=== PATIENT | male | born 1945 | race Caucasian/White ===

== ENCOUNTER 2019-12-06 10:02 | Emergency (ER) | payer MEDICARE ==
[~2019-12-06] VITALS: Ht 182.9 cm; Wt 97.0 kg
[2019-12-06] MEDS ORDERED: KEFLEX500 M1 PO (11:07)
[2019-12-06] MEDS ORDERED: NAPROSYN250 MG PO (11:07)
[2019-12-06 11:14] VITALS: BP 152/55
== END 2019-12-06 11:29 | disposition home or self-care (01) ==
LOC: ED 10:02
DX: M70.21 Olecranon bursitis, right elbow (principal)

== ENCOUNTER 2021-08-09 08:58 | Day surgery (SDC) | payer MEDICARE ==
[~2021-08-09] VITALS: Ht 182.9 cm; Wt 90.7 kg
[~2021-08-09 08:58] MED LIST: DOCUSATE CAL240 MG PO; KEFLEX500 M1 PO; NAPROSYN250 MG PO; RETACRIT2000 UNIT/ SC
[2021-08-09 11:24] VITALS: BP 117/52
== END 2021-08-09 11:20 | disposition home or self-care (01) ==
LOC: ENDO 08:58 → ORM 11:30 → ENDO 11:30 → ORM 12:30
PROVIDERS: ATTEND Surgery
PROC: 0DJD8ZZ Inspection of Lower Intestinal Tract, Via Natural or Artificial Opening Endoscopic (ICD-10-PCS; principal; 2021-08-09)
DX: Z12.11 Encounter for screening for malignant neoplasm of colon (principal); K57.30 Diverticulosis of large intestine without perforation or abscess without bleeding; K64.8 Other hemorrhoids; Z86.010 Personal history of colon polyps

== ENCOUNTER 2022-08-06 14:16 | Emergency (ER) | payer MEDICARE, OTHER ==
[2022-08-06] VITALS (10 sets, daily range): BP systolic 120–145; BP diastolic 41–69
[~2022-08-06] VITALS: Ht 182.9 cm; Wt 88.4 kg
[2022-08-06 15:52] LABS: BASO% 2.3 % (0-3); EOS% 1.4 % (0-8); HEMATOCRIT 29.5 % (39.0-50.0); HEMOGLOBIN 9.2 g/dl (14.0-18.0); IMMATURE GRANULOCYTES 0.5 % (0.0-5.0); LYMPH% 34.9 % (15-41); MEAN CELL VOLUME 108.1 fL CALC (80.0-100.0); MEAN CORPUSCULAR HGB 33.7 pG CALC (26.0-32.0); MEAN CORPUSCULAR HGB CONC 31.2 g/dL CAL (32.0-36.0); MONO% 11.3 % (2-13); NEUT# 2.21 thou/uL (1.82-7.42); NEUT% 49.6 % (42-76); RED BLOOD COUNT 2.73 mill/uL (4.70-6.10); RED CELL DISTRI WIDTH 23.6 % (11.5-15.5)
[2022-08-06 15:53] LABS: ALKALINE PHOSPHATASE 75 u/l (38-126); ANION GAP 12 (6-22 (CALC)); BILIRUBIN, TOTAL 1.4 mg/dL (0.2-1.3); BUN 27 mg/dL (8-23); BUN/CREATININE RATIO 20 (12-20 (CALC)); CARBON DIOXIDE 27 mmol/l (22-30); CHLORIDE 104 mmol/l (95-108); CREATININE 1.3 mg/dL (0.7-1.3); GFR FOR AFR.AMER. > 60 ML/MIN (>=60 (CALC)); GFR OTHER RACES 54 ML/MIN (>=60 (CALC)); POTASSIUM 4.3 mmol/l (3.5-5.1); SGOT/AST 27 u/l (19-48); SODIUM 139 mmol/l (137-146); TOTAL PROTEIN 8.2 g/dL (6.3-8.2)
[2022-08-06 15:55] LABS: INTERNATIONAL NORMALIZED RATIO 1.1 RATIO (0.7-1.3); PROTHROMBIN TIME 10.6 SECONDS (9.0-12.5)
[2022-08-06] MEDS ORDERED: MEDDOSEPAK PO ×2 (18:19→18:34)
== END 2022-08-06 18:57 | disposition home or self-care (01) ==
LOC: ED 14:16
PROVIDERS: Emergency Medicine
DX: M17.11 Unilateral primary osteoarthritis, right knee (principal)

== ENCOUNTER 2022-12-02 14:34 | Inpatient (IN) | payer MEDICARE, OTHER ==
[2022-12-02] VITALS (15 sets, daily range): BP systolic 86–141; BP diastolic 23–54
[~2022-12-02] VITALS: Ht 182.9 cm; Wt 84.0 kg
[~2022-12-02 14:34] MED LIST changes: +MEDDOSEPAK PO
--- NOTE | 2022-12-02 15:00 | NUR ---
EKG PERFORMED IN TRIAGE. PATIENT TAKEN TO ROOM 1 AFTER ARRIVAL.
[2022-12-02 15:22] LABS: BASO% 1.8 % (0-3); EOS% 3.6 % (0-8); HEMATOCRIT 24.9 % (39.0-50.0); HEMOGLOBIN 7.8 g/dl (14.0-18.0); IMMATURE GRANULOCYTES 1.4 % (0.0-5.0); LYMPH% 19.2 % (15-41); MEAN CELL VOLUME 101.6 fL CALC (80.0-100.0); MEAN CORPUSCULAR HGB 31.8 pG CALC (26.0-32.0); MEAN CORPUSCULAR HGB CONC 31.3 g/dL CAL (32.0-36.0); MONO% 10.4 % (2-13); NEUT# 4.58 thou/uL (1.82-7.42); NEUT% 63.6 % (42-76); RED BLOOD COUNT 2.45 mill/uL (4.70-6.10); RED CELL DISTRI WIDTH 24.3 % (11.5-15.5)
[2022-12-02 15:38] LABS: ALKALINE PHOSPHATASE 106 u/l (38-126); ANION GAP 15 (6-22 (CALC)); BILIRUBIN, TOTAL 1.1 mg/dL (0.2-1.3); BUN 31 mg/dL (8-23); BUN/CREATININE RATIO 17 (12-20 (CALC)); CARBON DIOXIDE 23 mmol/l (22-30); CHLORIDE 105 mmol/l (95-108); CREATININE 1.8 mg/dL (0.7-1.3); GFR FOR AFR.AMER. 45 ML/MIN (>=60 (CALC)); GFR OTHER RACES 37 ML/MIN (>=60 (CALC)); LIPASE 113 u/l (23-300); POTASSIUM 4.7 mmol/l (3.5-5.1); SGOT/AST 35 u/l (19-48); SODIUM 138 mmol/l (137-146); TOTAL PROTEIN 8.2 g/dL (6.3-8.2)
--- NOTE | 2022-12-02 15:43 | NUR ---
PROVIIDER AT BEDSIDE
[2022-12-02 15:45] LABS: ALBUMIN 3.9 g/dL (3.2-5.0)
--- NOTE | 2022-12-02 17:03 | NUR ---
PT TAKEN TO CT SCAN
--- NOTE | 2022-12-02 18:32 | NUR ---
CALLED AND GAVE PT REPORT TO ANTONIA IN [facility]
--- NOTE | 2022-12-02 18:44 | NUR ---
PT ARRIVED ON UNIT TRANSPORTED VIA STRETCHER AND TRANSFERRED TO BED. REPORT RECEIVED FROM ED NURSE H[place]. PT ALERT AND ORIENTED X 3, DENIES DISCOMFORT, SETTLED IN BED, ORIENTED TO ROOM AND CALL ALAS, C/O BEING HUNGRY AND OFFERED FOOD. INFORMED/EDUCATED ON FALL PRECAUTIONS AND STATED UNDERSTANDING. HR RN WILL CONTINUE CARE. AZYTHROMYCIN HUNG AND INFUSING. HS RN WILL CONTINUE CARE.
--- NOTE | 2022-12-02 20:13 | NUR ---
PATIENT SITTING UP IN BED WATCHING TV. ALERT AND ORIENTED X3. ASSESSMENT COMPLETE. PATIENT VERBALIZES SHARP CHEST PAIN UPON DEEP INHALATION OTHERWISE NO PAIN NOTED. NO DISTRESS NOTED AT THIS TIME. CALL LIGHT WITHIN REACH. INSTRUCTED TO CALL FOR ASSISTANCE WHEN NEEDED.
[2022-12-02 21:34] LABS: URINE BILIRUBIN - DIPSTICK NEGATIVE (NEGATIVE); URINE BLOOD DIPSTICK NEGATIVE (NEGATIVE); URINE COLOR YELLOW; URINE GLUCOSE - DIPSTICK NEGATIVE (NEGATIVE); URINE KETONE NEGATIVE (NEGATIVE); URINE LEUK ESTERASE NEGATIVE (NEGATIVE); URINE PH 5.5 (4.5-8.0); URINE PROTEIN - DIPSTICK TRACE mg/dL (NEG-TRACE); URINE UROBILINOGEN - DIPSTICK 0.2 E.U./dL (0.2)
[2022-12-02 21:35] LABS: URINE NITRITE - DIPSTICK NEGATIVE (Negative)
--- NOTE | 2022-12-02 22:00 | NUR ---
BASELINE VITALS TAKEN AND NS BEGAN AT 50ML/HR PRIOR TO RECEIVING PRBC'S FOR TRANFUSION.
--- NOTE | 2022-12-02 22:22 | NUR ---
VITALS RECHECKED PRIOR TO SPIKING RED BLOOD CELLS. BP AND SATURATION LOW, PATIENT PLACED ON 2L/NC FOR STATURATION HIGH 70'S, LOW 80'S. SATURATION PRICILA TO 90%
--- NOTE | 2022-12-02 22:33 | NUR ---
PRBC TRANSFUSION BEGAN.
--- NOTE | 2022-12-02 22:48 | NUR ---
INITIAL 15 MINUTES OF BEDSIDE TRANSFUSION MONITORING COMPLETE. PATIENT TOLERATING WELL. NO S/S OF TRANFUSION REACTION NOTED. RATE INCREASED FROM 75ML TO 125ML.
--- NOTE | 2022-12-02 23:00 | NUR ---
TOLERATING TRANSFUSION WELL.
[2022-12-03] VITALS (17 sets, daily range): BP systolic 103–138; BP diastolic 39–59
--- NOTE | 2022-12-03 02:05 | NUR ---
PRBC TRANSFUSION COMPLETE. PATIENT TOLERATED WELL, VSS. NO DISTRESS NOTED.
[2022-12-03 06:08] LABS: HEMATOCRIT 26.1 % (39.0-50.0); HEMOGLOBIN 8.2 g/dl (14.0-18.0); MEAN CELL VOLUME 101.2 fL CALC (80.0-100.0); MEAN CORPUSCULAR HGB 31.8 pG CALC (26.0-32.0); MEAN CORPUSCULAR HGB CONC 31.4 g/dL CAL (32.0-36.0); RED BLOOD COUNT 2.58 mill/uL (4.70-6.10); RED CELL DISTRI WIDTH 23.5 % (11.5-15.5)
[2022-12-03 06:13] LABS: CREATININE 1.7 mg/dL (0.7-1.3); POTASSIUM 4.6 mmol/l (3.5-5.1)
[2022-12-03 06:15] LABS: CHOLESTEROL HDL RATIO 2.3 (<4.4 (CALC)); MAGNESIUM 1.9 mg/dL (1.6-2.3)
--- NOTE | 2022-12-03 07:19 | NUR ---
RECEIVE REPORT FROM OMID SHAVER.
--- NOTE | 2022-12-03 08:00 | NUR ---
Alert and oriented patient x3.Does not refer pain or discomfort at the time of writing this note. TELE monitor ON. Nasal cannula 2L. PT is Educates and guides on medications, pain management and nausea and nursing plan for today. Patient refers to understand. Safety and fall precautions in place. Call light within in reach.
--- NOTE | 2022-12-03 12:14 | NUR ---
Stable patient at the time of this note. Patient receiving blood transfusion.
--- NOTE | 2022-12-03 16:00 | NUR ---
PATIENT STABLE RESTING IN BED. SAFETY AND FALL PRECAUTIONS IN PLACE. CALL LIGHT WITHIN IN REACH.
--- NOTE | 2022-12-03 20:01 | NUR ---
BEDSIDE REPORT RECEIVED FORM OFF GOING NURSE. PATIENT AWAKE AND ABLE TO ANSWER QUESTIONS APPROPRIATELY. DENIES PAIN OR DISCOMFORT AT THIS TIME. RESPIRATIONS EVEN AND UNLABORED ON OXYGEN AT 2 LPM VIA NASAL CANNULA. PATIENT IS NOTED TO BE HARD OF HEARING BUT ABLE TO HEAR IN A QUIET SETTING. CALL LIGHT WITHIN REACH.
[2022-12-04] VITALS (8 sets, daily range): BP systolic 92–111; BP diastolic 38–58
--- NOTE | 2022-12-04 02:11 | NUR ---
PATENT ASLEEP IN BED. RESPIRATIONS EVEN AND UNLABORED ON OXYGEN AT 2 LPM VIA NASAL CANNULA. AIRBORNE PRECAUTIONS MAINTAINED. CALL LIGHT WITHIN REACH.
[2022-12-04 05:34] LABS: HEMATOCRIT 29.6 % (39.0-50.0); HEMOGLOBIN 9.4 g/dl (14.0-18.0); IMMATURE GRANULOCYTES 1.4 % (0.0-5.0); MEAN CELL VOLUME 98.7 fL CALC (80.0-100.0); MEAN CORPUSCULAR HGB 31.3 pG CALC (26.0-32.0); MEAN CORPUSCULAR HGB CONC 31.8 g/dL CAL (32.0-36.0); PLATELET COUNT 222 thou/uL (130-400); RED CELL DISTRI WIDTH 22.4 % (11.5-15.5)
[2022-12-04 05:45] LABS: ALBUMIN 3.5 g/dL (3.2-5.0); ALKALINE PHOSPHATASE 88 u/l (38-126); ANION GAP 12 (6-22 (CALC)); BILIRUBIN, TOTAL 1.1 mg/dL (0.2-1.3); BUN 28 mg/dL (8-23); BUN/CREATININE RATIO 21 (12-20 (CALC)); CARBON DIOXIDE 22 mmol/l (22-30); CHLORIDE 109 mmol/l (95-108); CREATININE 1.3 mg/dL (0.7-1.3); GFR FOR AFR.AMER. > 60 ML/MIN (>=60 (CALC)); GFR OTHER RACES 54 ML/MIN (>=60 (CALC)); MAGNESIUM 2.2 mg/dL (1.6-2.3); SGOT/AST 29 u/l (19-48); SODIUM 138 mmol/l (137-146); TOTAL PROTEIN 7.2 g/dL (6.3-8.2)
[2022-12-04 05:49] LABS: POTASSIUM 5.3 mmol/l (3.5-5.1)
[2022-12-04 05:52] LABS: C-REACTIVE PROTEIN 5.2 mg/dL (0-0.9)
[2022-12-04 06:05] LABS: MANUAL DIFFERENTIAL YES
[2022-12-04 06:07] LABS: BAND 1 % (0-8); NUCLEATED RED BLOOD CELL 2 /100WBC (0-1)
--- NOTE | 2022-12-04 06:23 | NUR ---
PATIENT IS ASLEEP IN BED. RESPIRATIONS EVEN AND UNLABORED ON OXYGEN AT 2 LPM VIA NASAL CANNULA. NO SIGNS OF DISTRESS NOTED. CALL LIGHT WITHIN REACH.
--- NOTE | 2022-12-04 07:36 | NUR ---
SHIFT CHANGE REPORT, PT AWAKE ALERT AND ORIENTED SITTING UP IN BED, PLEASANTLY CONVERSATIONAL, O2 @ 2L VIA NC IN PLACE, TELE MONITOR IN PLACE, CALL ALAS IN REACH AND BED LOCKED IN LOWEST POSITION. PT EXPRESSES APPRECIATION FOR CARE AND IS VERY HAPPY.
--- NOTE | 2022-12-04 12:00 | NUR ---
RELAXING IN BED, ALL NEEDS MET/ADDRESSED, NO NEW COMPLAIN.
--- NOTE | 2022-12-04 23:45 | NUR ---
PATIENT ASLEEP IN BED AT THIS TIME. RESPIRATIONS EVEN AND UNLABORED. CALL LIGHT WITHIN REACH.
[2022-12-05 00:48] VITALS: BP 125/65
--- NOTE | 2022-12-05 02:07 | NUR ---
PATIENT ALSEEP IN BED. AIRBORNE PRECAUTIONS MAINTAINED. PATIENT IN NO APPARENT DISTRESS. CALL LIGHT WITHIN REACH.
[2022-12-05 04:51] VITALS: BP 113/44
[2022-12-05 06:04] LABS: BASO% 1.4 % (0-3); HEMOGLOBIN 9.2 g/dl (14.0-18.0); IMMATURE GRANULOCYTES 1.4 % (0.0-5.0); LYMPH% 20.1 % (15-41); MEAN CELL VOLUME 99.3 fL CALC (80.0-100.0); MEAN CORPUSCULAR HGB 31.5 pG CALC (26.0-32.0); MEAN CORPUSCULAR HGB CONC 31.7 g/dL CAL (32.0-36.0); MONO% 6.8 % (2-13); NEUT# 2.49 thou/uL (1.82-7.42); NEUT% 70.3 % (42-76); RED BLOOD COUNT 2.92 mill/uL (4.70-6.10); RED CELL DISTRI WIDTH 22.1 % (11.5-15.5)
[2022-12-05 06:23] LABS: ALBUMIN 3.4 g/dL (3.2-5.0); ALKALINE PHOSPHATASE 74 u/l (38-126); ANION GAP 10 (6-22 (CALC)); BILIRUBIN, TOTAL 0.7 mg/dL (0.2-1.3); BUN 34 mg/dL (8-23); BUN/CREATININE RATIO 28 (12-20 (CALC)); CARBON DIOXIDE 23 mmol/l (22-30); CHLORIDE 108 mmol/l (95-108); CREATININE 1.2 mg/dL (0.7-1.3); GFR FOR AFR.AMER. > 60 ML/MIN (>=60 (CALC)); GFR OTHER RACES 59 ML/MIN (>=60 (CALC)); MAGNESIUM 2.1 mg/dL (1.6-2.3); POTASSIUM 4.9 mmol/l (3.5-5.1); SGOT/AST 25 u/l (19-48); SODIUM 136 mmol/l (137-146); TOTAL PROTEIN 7.2 g/dL (6.3-8.2)
--- NOTE | 2022-12-05 08:00 | NUR ---
PT IN ROOM WITH HOB UP ALERT AND OREINTED X 3, HAVING DIFFICULTY HEARING AND SPEAKING LOUDLY; PT DOES NOT HAVE HEARING AIDS. TELE ON WITH ALL LEADS ATTACHED. O2 @ 2 LITERS ON VIA NC. IV TO RFA CLEAN AND INTACT, SALINE LOCK. LUNGS DIMINISHED, BREATHING NON LABORED. BS ACTIVE, ABD SOFT. PT AMBULATES WELL TO BATHRROM FOR TOILETING NEEDS. CALL LIGHT WITHIN REACH AND ALL SAFETY MEASURES IN PLACE.
[2022-12-05 11:20] VITALS: BP 102/48
[2022-12-05] MEDS ORDERED: OMNICEF300 MG PO (11:53)
[2022-12-05] MEDS ORDERED: DECADRON2 MG PO (11:53)
--- NOTE | 2022-12-05 12:00 | NUR ---
PT IN BED WITH HOB, EATING LUNCH. PT HAS NO C/O PAIN AT THIS TIME. PT AWARE THAT HE WILL BE D/C HOME WHEN HIS O2 ARRIVES. PT HAS NO CHANGE IN STATUS AT THIS TIME. CALL LIGHT WITHIN REACH.
[2022-12-05 15:26] VITALS: BP 121/63
--- NOTE | 2022-12-05 15:40 | NUR ---
Discharge instructions given. Patient verbalizes understanding of same. Discharged in stable condition via Wheelchair to Home with staff. All belongings sent with pt.
== END 2022-12-05 15:38 | disposition home or self-care (01) | DRG 193 ==
LOC: ED 14:34 → MS2 17:55
PROVIDERS: Nurse Practitioner; Nurse Practitioner Family; ADMIT Internal Medicine; ATTEND Internal Medicine
PROC: 30233N1 Transfusion of Nonautologous Red Blood Cells into Peripheral Vein, Percutaneous Approach (ICD-10-PCS; principal; 2022-12-02)
PROC: 30233N1 Transfusion of Nonautologous Red Blood Cells into Peripheral Vein, Percutaneous Approach (ICD-10-PCS; 2022-12-03)
DX: J12.82 Pneumonia due to coronavirus disease 2019 (principal); U07.1 COVID-19; D46.4 Refractory anemia, unspecified; Z20.822 Contact with and (suspected) exposure to COVID-19
CPT/HCPCS: A9540; J1650; P9016; Q9967